=== PATIENT | male | born 1965 | race Hispanic/Latino ===

== ENCOUNTER 2018-02-04 10:38 | Inpatient (IN) | payer MEDICAID, OTHER ==
--- NOTE | 2018-02-04 10:45 | ED PDOC ---
Psych Transfer Clearance - Clearance Statement Clearance Statement: Reviewed vital signs, lab results and transfer papers. Patient clinically stable for psychiatric admission.
[2018-02-04 10:48] VITALS: O2SAT 96
[2018-02-04] MEDS ORDERED: Magnesium Hydroxide Susp 30 ml UD PO PRN (12:13)
[2018-02-04] MEDS ORDERED: Alum-Mag Hydrox-Simethicone Susp (30 mL) PO PRN (12:13)
[2018-02-04] MEDS ORDERED: DiphenhydrAMINE 50 mg/ml Inj IM PRN (12:13)
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
--- NOTE | 2018-02-04 17:28 | PCM.BM ---
<Scar Peacock - Last Filed: 02/04/18 17:26> Treatment Plan Problems - Problems identified on initial assessmt Ineffective Impulse Control Date Initiated: 02/04/18 Time Initiated: 12:00 Date resolved: 02/11/18 Assessment reference: NA Status: Active Priority: 1 Treatment assets and liabiliti Patient Assests: adapts well, self-reliant, ADL independent Patient Liabilities: financial problems, poor support system, substance abuse - Milieu Protocol Maintain good personal hygiene: daily Encourage regular showers, daily Remind patient to perform daily oral care, daily Assist patient to perform ADL's Conduct patient checks and document Observation sheet: Q15 minutes Maintain personal safety: every shift Educate patient to report safety concerns to staff, every shift Monitor environment for contraband/sharps Medication safety: Monitor for expected outcome, potential side effects: daily, Assess barriers to learning: daily, Assess readiness for medication education: daily Milieu Narrative: pt will be started on risperidone 2mg BID, Depakote 500mg bid/ follow up on depakote level klonopin 0.25 mg tid monitor for psychopharmacological effects and side effect profile medical consult motivational group and supportive therapy disposition planning Discharge/Continuing Care - Treatment Team Participation Patient/Family/SO Statement: pt will be started on risperidone 2mg BID, Depakote 500mg bid/ follow up on depakote level klonopin 0.25 mg tid monitor for psychopharmacological effects and side effect profile medical consult motivational group and supportive therapy disposition planning <Felipa Quiles - Last Filed: 02/05/18 14:12> - Diagnosis (1) Psychosis Status: Acute Interventions: pharmacotherapy 02/05/18 14:13 <Noni Maldonado - Last Filed: 02/05/18 16:01> Treatment assets and liabiliti Patient Assests: cooperative, resourceful, self-reliant, ADL independent, physically healthy, negotiates basic needs Patient Liabilities: live alone (recently homeless), financial problems, poor support system, substance abuse Family Contact Family involvement: Famliy/SO not involved Family contact: Patient declines to allow family contact at present - Goals for Treatment Patient goals for treatment: Patient to continue stabilization on 3NP through medication management and group/supportive therapy to address sxs of psychosis and improve organization of thoughts. Patient to be encouraged to attend groups regularly to promote self-awareness, reality testing and improve insight, compliance, coping skills and self-esteem. Patient to be provided with referral for appropriate level of aftercare to reduce risk of future hospitalizations and ensure safety in the community. Discharge/Continuing Care - Education Needs Education Needs: Patient Medication, Patient Diagnosis/Disease Process, Patient Coping Skills, Patient Community resources, Patient Aftercare Safety Plan - Discharge Discharge Criteria: Tolerates medication w/o severe side effects, Free of Suicidal thoughts, Free of paranoid thoughts, Free of agitation, Normal sleep pattern, Ability to care for self, Reduction of target symptoms Discharge to:: [facility]pc, Other (OPS) - Treatment Team Participation Patient/Family/SO Statement: 02/05/18 16:00 Patient was invited to tx team this morning to discuss precursors to hospitalization, progress on 3NP and tx goals. Pt. presented as irritable, labile and somewhat internally preoccupied. Pt. appeared to be somewhat sedated , dozing off ad intermittently placing head on table. Pt. providing limited collateral information as a result. Pt. did report over 100 inpatient psychiatric hospitalizations with [facility] Pt. briefly inquired about aftercare. [employer] began to explain that if pt. wishes to remain in [place] it would be beneficial for pt. to transfer [place] insurance ([employer] to [place], as [place] insurances [place] services available out of state. Pt. unable to process information secondary to psychotic sxs. Patient encouraged to rest and assured that tx team will continue to meet with him through stabilization to discuss discharge planning. Pt. expressed understanding and returned to room. Discussed with Family/SO: No Was Patient/Family/SO present at Treatment Team Meeting: Yes
[2018-02-04] MEDS: Divalproex 500 mg DR(BID formulation) PO SCH (18:00)
[2018-02-05] MEDS: Divalproex 500 mg DR(BID formulation) PO SCH (08:34)
--- NOTE | 2018-02-05 09:14 | CP.PCM.CON ---
History of Present Illness - History of Present Illness History of Present Illness: Reason for Consult: Per hospital protocol HPI: 52 year old male hx bipolar disorder admitted for bipolar disorder. No complaints. HD stable NAD. ROS: Per HPI, all other systems reviewed and neg PMH: denies PSH: denies FH: denies SH: denies tobacco, ETOH, IVDU NKDA Vitals Reviewed GEN: WDWN, alert, cooperative HEENT: NCAT, PERRL, EOMI HEART: RRR, +S1S2, NO MRG LUNG: CTAB, NO WRR ABD: soft, NT, ND, No HSM, No masses EXT: normal pedal pulses NEURO: awake, alert SKIN: warm, dry PSYCH: normal mood, normal affect Past Patient History - CARDIAC Hx Cardiac Disorders: No - PULMONARY Hx Respiratory Disorders: No - NEUROLOGICAL Other/Comment: Pt states he has sharp headaches that come on when with lights or sounds. States he gets them often but has never rec'd tx. - HEENT Hx HEENT Problems: No - RENAL Hx Chronic Kidney Disease: No Hx Kidney Stones: No - ENDOCRINE/METABOLIC Hx Endocrine Disorders: No - HEMATOLOGICAL/ONCOLOGICAL Hx Blood Disorders: No - INTEGUMENTARY Hx Dermatological Problems: No - MUSCULOSKELETAL/RHEUMATOLOGICAL Other/Comment: Compartment Syndrome Left inner forearm - GASTROINTESTINAL Hx Gastrointestinal Disorders: No - GENITOURINARY/GYNECOLOGICAL Hx Genitourinary Disorders: No - PSYCHIATRIC Hx Substance Use: No (Pt states no but has drug screen has methadone and PCP) - SURGICAL HISTORY Hx Surgeries: No - ANESTHESIA Hx Anesthesia: No Meds Allergies/Adverse Reactions: Allergies Allergy/AdvReac Type Severity Reaction Status Date / Time Penicillins Allergy SHORTNESS Verified 02/04/18 10:51 OF BREATH - Medications Medications: Current Medications Acetaminophen (Tylenol 325mg Tab) 650 mg PO Q4 PRN PRN Reason: Pain, moderate (4-7) Last Admin: 02/05/18 04:53 Dose: 650 mg Al Hydrox/Mg Hydrox/Simethicone (Maalox Plus 30 Ml) 30 ml PO Q4 PRN PRN Reason: Dyspepsia Chlorpromazine (Thorazine) 50 mg PO Q6 PRN PRN Reason: Agitation Chlorpromazine (Thorazine) 50 mg IM Q6 PRN PRN Reason: Agitation Clonazepam (Klonopin) 0.25 mg PO TID CARLA Last Admin: 02/05/18 08:34 Dose: 0.25 mg Diphenhydramine HCl (Benadryl) 50 mg IM Q6 PRN PRN Reason: Extrapyramidal S/S Unable PO Diphenhydramine HCl (Benadryl) 50 mg PO Q6 PRN PRN Reason: Extrapyramidal Symptoms Divalproex Sodium (Depakote Dr(*Bid*)) 500 mg PO BID COUNT INCLUDES THE [facility] Last Admin: 02/05/18 08:34 Dose: 500 mg Hydroxyzine Pamoate (Vistaril) 50 mg PO Q8 PRN PRN Reason: Anxiety Magnesium Hydroxide (Milk Of Magnesia) 30 ml PO HS PRN PRN Reason: Constipation Nicotine (Nicoderm Cq) 1 patch TD DAILY COUNT INCLUDES THE [facility] Last Admin: 02/05/18 08:34 Dose: 1 patch Risperidone (Risperdal Tab) 2 mg PO BID COUNT INCLUDES THE [facility] Last Admin: 02/05/18 08:34 Dose: 2 mg Trazodone HCl (Desyrel) 100 mg PO HS COUNT INCLUDES THE [facility] Last Admin: 02/04/18 21:14 Dose: 100 mg Results - Vital Signs Recent Vital Signs: Last Vital Signs Temp 97.3 F L 02/05/18 09:09 Pulse 73 02/05/18 09:09 Resp 18 02/05/18 09:09 BP 118/77 02/05/18 09:09 Pulse Ox 96 02/04/18 10:42 Assessment & Plan - Assessment and Plan (Free Text) Plan: 52 year old male hx bipolar disorder admitted for bipolar disorder. No complaints. HD stable NAD. Bipolar Disorder per psych
[2018-02-05 10:21] LABS: T4 8.67 ug/dl (5.5-11.0)
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
[2018-02-05] MEDS: Divalproex 250 mg DR(BID formulation) PO SCH (21:09)
[2018-02-06] MEDS: Divalproex 500 mg DR(BID formulation) PO SCH (08:58)
--- NOTE | 2018-02-06 16:03 | PCM.PYCHPN ---
Psychiatric Progress Note - Psychiatric Progress Note Patient seen today, length of contact: pt evaluated discussed with team chart reviewed Patient Chief Complaint: dont know why im hear, nothing really wrong with me, would like to go, submitted 48hr notice after receiving explanation from staff, pt noted to be labile at times, requiring frequent redirection, appears to have impaired insight, Problems Identified/Issues Discussed: alteration in cognition, alteration in coping, alteration in self care Medical Problems: per chart Diagnostic Results: per psychiatry per medicine per nursing per social work per recreational therapy DSM 5 Symptoms Update: impaired cognition, impaired mood, impaired insight, impaired judgement related to clinical status, clinical care, l Medication Change: No Medical Record Reviewed: No Consults ordered or reviewed: pt seen by hospitalist Mental Status Examination - Cognitive Function Orientation: Person, Place Memory: Intact Attention: Poor Concentration: Poor Association: Loose Fund of Knowledge: Poor Decription of patient's judgement and insights: poor - Mood Mood: Depressed, Anxious - Affect Additional comments: labile - Formal Thought Process Formal Thought Process: Paranoia, Loosening of associations, Circumstantial - Suicidal Ideation Suicidal Ideation: No - Homicidal Ideation Homicidal Ideation: No Goal/Treatment Plan - Goal/Treatment Plan Need for Continued Stay: Severe depression anxiety, Discharge may exacerbated symptoms Progress Toward Problem(s) and Goals/Treatment Plan: inpt milieu pt submitted 48 hour notice at this time pt does not appear to be clinically stable nor safe pt to be screened per attending adjust meds per clinical status discharge planning in progress Estimated Date of D/C: 02/10/18 - Smoking Cessation Smoking Cessation Initiated: Yes
[2018-02-06] MEDS: Divalproex 250 mg DR(BID formulation) PO SCH (21:20)
[2018-02-07] MEDS: Divalproex 500 mg DR(BID formulation) PO SCH (08:22)
[2018-02-07 18:15] VITALS: BP 120/70; PULSE 78; RESP 18; TEMP 97.7
--- NOTE | 2018-02-07 20:07 | PCM.PYCHDC ---
Mental Status Examination - Mental Status Examination Orientation: Person Memory: Impaired Mood: Depressed, Anxious Affect: Other (labile) Speech: Pressured Attention: Poor Concentration: Poor Association: Loose Fund of Knowledge: Poor Formal Thought Process: Paranoia, Circumstantial Description of patient's judgement and insight: poor Psychotic Thoughts and Behaviors: paranoia people are trying to take advantage of him without giving details examples Suicidal Ideation: No Current Homicidal Ideation?: No Discharge Summary - Discharge Note Reason for Hospitalization: alteration in cognition mood Psychiatric History (includes Medical, Family, Personal Hx): chronic mental illness Laboratory Data: per chart Consultations:: List each consultation separately and include: 1. Reason for request. 2. Findings. 3. Follow-up Consultations: pt seen by hospitalist Summary of Hospital Course include:: 1. Description of specific treatment plan utilized for patients during their course of treatmen. 2. Summarize the time- course for resolution of acute symptoms and/or regressed behaviors. 3. Describe issues identified and worked on during hospitalization. 4. Describe medication utilized. 5. Describe medical problems identified and treated. 6. Reassessment of suicide risk Summary of Hospital Course: admitted voluntarily to unit, for psychosis/labile mood, has submitted 48 hour notice , does not appear to have insight judgment appropriate to make sound decisions related to being discharged as does not appear to be clinically stable (labile, paranoid), requiring frequent redirection - Final Diagnosis (DSM 5) Condition upon Discharge: FAIR Disposition: DISCHARGE TO PSYCH HOSPITAL Follow-up Treatment Plan: [place] [facility] [place], was discussed with pt, [place] [facility] [place]
[2018-02-07] MEDS: Divalproex 250 mg DR(BID formulation) PO SCH (21:32)
== END 2018-02-07 22:10 | DRG 430 ==
LOC: H.ER 10:38 → H.ERHOLD 10:46 → H.PSYCH 11:36
PROVIDERS: ADMIT Psychiatry & Neurology Psychiatry; ATTEND Psychiatry & Neurology Psychiatry
PROC: GZHZZZZ Group Psychotherapy (ICD-10-PCS; principal; 2018-02-04)
PROC: GZ58ZZZ Individual Psychotherapy, Cognitive-Behavioral (ICD-10-PCS; 2018-02-04)
DX: F31.63 Bipolar disorder, current episode mixed, severe, without psychotic features (principal); F13.10 Sedative, hypnotic or anxiolytic abuse, uncomplicated; F16.10 Hallucinogen abuse, uncomplicated; F12.10 Cannabis abuse, uncomplicated; F25.0 Schizoaffective disorder, bipolar type; Z59.9 Problem related to housing and economic circumstances, unspecified